=== PATIENT | female | born 1975 | race Caucasian/White ===

== ENCOUNTER 2019-08-22 10:06 | Outpatient (CLI) | payer OTHER ==
[~2019-08-22 10:06] MED LIST: AFRIN NAS; ALPH300T2 PO; CETI10CA PO; MELA10TA PO; NORG1TAB61 PO; RANI150T4 PO; ZOLP-413 PO; acetaminophen 500mg PO; ibuprofen PO
== END 2019-08-22 23:59 | disposition home or self-care (01) ==
LOC: CFH 10:06 → MERGE 10:06 → CFH 23:59
PROVIDERS: ATTEND Obstetrics & Gynecology
DX: Z12.31 Encounter for screening mammogram for malignant neoplasm of breast (principal)
CPT/HCPCS: 77063; 77067